=== PATIENT | male | born 1980 | race Caucasian/White ===

== ENCOUNTER 2016-12-22 19:50 | Emergency (ER) | payer OTHER ==
[~2016-12-22] VITALS: Ht 175.3 cm; Wt 77.3 kg
[2016-12-22] MEDS ORDERED: PERCOCET 5/31 TABLET PO (20:33)
[2016-12-22 21:13] VITALS: BP 140/85
== END 2016-12-22 21:13 | disposition home or self-care (01) ==
LOC: EME 19:50
PROC: 2W3QX1Z Immobilization of Right Lower Leg using Splint (ICD-10-PCS; principal; 2016-12-22)
DX: S92.354A Nondisplaced fracture of fifth metatarsal bone, right foot, initial encounter for closed fracture (principal); W18.42XA Slipping, tripping and stumbling without falling due to stepping into hole or opening, initial encounter; F17.200 Nicotine dependence, unspecified, uncomplicated
CPT/HCPCS: 73630; 99281; 99284

== ENCOUNTER 2017-03-24 14:53 | Emergency (ER) | payer OTHER ==
[~2017-03-24] VITALS: Ht 175.3 cm; Wt 68.0 kg
[~2017-03-24 14:53] MED LIST: PERCOCET 5/31 TABLET PO
[2017-03-24 17:01] LABS: BASOPHIL COUNT 0.1 K/uL (0-0.1); EOSINOPHIL (%) 0 % (0-5); HEMATOCRIT 31.6 % (38.0-50.0); IMMATURE GRANULOCYTE (%) 0.8 % (0.0-0.7); IMMATURE GRANULOCYTE COUNT 0.1 K/uL; INSTRUMENT ABS NEUTROPHIL CT 7.9 K/uL; LYMPHOCYTE COUNT 2.2 K/uL (1.0-2.8); MCH 27.2 PG (29.0-34.0); MCHC 31.6 G/DL (30.0-36.0); MCV 85.9 FL (86-99); MEAN PLAT.VOLUME 8.8 uM^3 (9.0-12.4); MONOCYTE (%) 4.8 % (3-12); MONOCYTE COUNT 0.5 K/uL (0-0.8); NEUTROPHIL (%) 73.6 % (45-76); NEUTROPHIL COUNT 7.9 K/uL (1.8-6.4); PLATELET COUNT 721 K/uL (156-360); RBC DIS.WIDTH-CV 15.3 % (11.8-14.6); RBC DIS.WIDTH-SD 47.8 % (39-53); RED BLOOD COUNT 3.68 M/uL (4.00-5.50); WHITE BLOOD COUNT 10.7 K/uL (4.1-10.2)
[2017-03-24 17:09] LABS: CHLORIDE 100 mEq/L (99-109); POTASSIUM 3.8 mEq/L (3.7-5.4); SODIUM 137 mEq/L (136-147)
[2017-03-24 17:10] LABS: MAGNESIUM 2.1 mg/dL (1.3-2.7)
[2017-03-24 17:11] LABS: GLUCOSE 80 mg/dL (70-99)
[2017-03-24 17:13] LABS: ANION GAP 15 MEQ/L (2-14); TOTAL BILIRUBIN 0.4 mg/dL (0.0-1.0)
[2017-03-24 17:15] LABS: ALKALINE PHOSPHATASE 101 IU/L (3-129); GFR ESTIMATE (CALCULATED) > 59 mL/min/
[2017-03-24 17:16] LABS: UREA NITROGEN (BUN) 13 mg/dL (9-23)
[2017-03-24] MEDS ORDERED: BACTRIM,SEPT1 TABLET PO (17:43)
[2017-03-24] MEDS ORDERED: KEFLEX500 MG PO (17:43)
[2017-03-24] MEDS ORDERED: ZOFRAN ODT4 MG PO (17:43)
[2017-03-24 17:59] VITALS: BP 115/77
== END 2017-03-24 18:25 | disposition home or self-care (01) ==
LOC: EME 14:53
PROVIDERS: Physician Assistant Medical
DX: R11.2 Nausea with vomiting, unspecified (principal); R19.7 Diarrhea, unspecified; L03.115 Cellulitis of right lower limb; F19.10 Other psychoactive substance abuse, uncomplicated; Z89.512 Acquired absence of left leg below knee; F17.200 Nicotine dependence, unspecified, uncomplicated
CPT/HCPCS: 74020; 80053; 83605; 83735; 85025; 87040; 99281; 99285; J2405; J7030

== ENCOUNTER 2017-08-06 10:41 | Emergency (ER) | payer OTHER ==
[~2017-08-06] VITALS: Ht 175.3 cm; Wt 75.1 kg
[~2017-08-06 10:41] MED LIST changes: +BACTRIM,SEPT1 TABLET PO; +KEFLEX500 MG PO; +ZOFRAN ODT4 MG PO
[2017-08-06 12:40] LABS: HEMATOCRIT 34.7 % (38.0-50.0); MCH 27.3 PG (29.0-34.0); MCHC 31.7 G/DL (30.0-36.0); MCV 86.1 FL (86-99); PLATELET COUNT 411 K/uL (156-360); RBC DIS.WIDTH-CV 15.9 % (11.8-14.6); RBC DIS.WIDTH-SD 49.6 % (39-53); RED BLOOD COUNT 4.03 M/uL (4.00-5.50); WHITE BLOOD COUNT 8.6 K/uL (4.1-10.2)
[2017-08-06 12:48] LABS: CHLORIDE 101 mEq/L (99-109); POTASSIUM 4.8 mEq/L (3.7-5.4); SODIUM 136 mEq/L (136-147)
[2017-08-06 12:49] LABS: GLUCOSE 111 mg/dL (70-99)
[2017-08-06 12:53] LABS: CREATININE 0.8 mg/dL (0.6-1.3); GFR ESTIMATE (CALCULATED) > 59 mL/min/ (58.99-99999)
[2017-08-06 12:54] LABS: UREA NITROGEN (BUN) 9 mg/dL (9-23)
[2017-08-06 23:54] VITALS: BP 104/66
== END 2017-08-06 23:55 | disposition short-term general hospital (02) ==
LOC: EME 10:41
PROVIDERS: Physician Assistant
DX: M00.9 Pyogenic arthritis, unspecified (principal); S81.001A Unspecified open wound, right knee, initial encounter; X58.XXXA Exposure to other specified factors, initial encounter; Z96.653 Presence of artificial knee joint, bilateral; Z53.8 Procedure and treatment not carried out for other reasons; Z91.19 Patient's noncompliance with other medical treatment and regimen; Z89.512 Acquired absence of left leg below knee; F17.200 Nicotine dependence, unspecified, uncomplicated
CPT/HCPCS: 73701; 80048; 85027; 86703; 86705; 86803; 87040; 87070; 87075; 87077; 87147; 87186; 87205; 87340; 87801; 99281; 99285; J1885; J2270; J3010; J7030